=== PATIENT | male | born 1960 ===

== ENCOUNTER 2020-07-25 16:32 | Emergency (ER) | payer OTHER ==
[~2020-07-25] VITALS: Ht 188 cm; Wt 99.9 kg
[~2020-07-25 16:32] MED LIST: LISI-170
--- NOTE | 2020-07-25 16:58 | NUR ---
PT PLACED IN C-COLLAR
[2020-07-25] MEDS ORDERED: IBUPROFEN 800 MG TABLET ONE (19:56)
[2020-07-25 20:00] VITALS: BP 146/93
[2020-07-25] MEDS ORDERED: IBUPROFEN 800 MG TABLET PO ONE (20:00)
--- NOTE | 2020-07-25 20:01 | NUR ---
PATIENT CLEARED FROM TRAIGE FOR DISCHARGE. NO NOTED ACUTE DISTRESS. AMBULATORY WITHOUT COMPLICATIONS TO DISCHARGE DESK WITH BELONGINGS. VERBALIZED UNDERSTANDING OF SELF CARE AND FOLLOW UP CARE AT HOME.
== END 2020-07-25 20:03 | disposition home or self-care (01) ==
LOC: ED 19:45
DX: S16.1XXA Strain of muscle, fascia and tendon at neck level, initial encounter (principal); S29.012A Strain of muscle and tendon of back wall of thorax, initial encounter; M51.36 Other intervertebral disc degeneration, lumbar region; I10 Essential (primary) hypertension; V53.0XXA Driver of pick-up truck or van injured in collision with car, pick-up truck or van in nontraffic accident, initial encounter; Y93.89 Activity, other specified; Y92.410 Unspecified street and highway as the place of occurrence of the external cause; Y99.8 Other external cause status
CPT/HCPCS: 72110; 72125; 99284